=== PATIENT | male | born 1995 | race Caucasian/White ===

== ENCOUNTER 2018-03-05 07:50 | Emergency (ER) | payer OTHER, SELFPAY ==
[2018-03-05] MEDS ORDERED: Adacel (T-DAP) 0.5 ML VIAL ONE (08:00)
[2018-03-05 08:28] LABS: #Basophils 0.1 thou/uL (0.0-0.2); #Eosinphils 0.2 thou/uL (0.0-0.7); #Monocytes 0.6 thou/uL (0.11-0.59); %Basophils 0.7 % (0.0-1.0); %Eosinophils 2.7 % (0.0-10.0); %Lymphocytes 22.6 % (21.0-51.0); %Monocytes 6.9 % (0.0-10.0); %Neutrophils 67.2 % (42.0-75.0); Hemoglobin 14.7 g/dL (14.0-18.0); Mean Corpuscular HGB CONC 33.9 g/dL (32.0-36.0); Mean Corpuscular Hemoglobin 30.7 pg (27.0-31.0); Mean Corpuscular Volume 90.7 fL (78.0-98.0); Mean Platelet Volume 8.4 fL (7.4-10.4); Platelet Count 234 thou/uL (130-400); RBC Distribution Width 11.3 % (11.5-14.5); White Blood Cell (WBC) Count 8.9 thou/uL (4.8-10.8)
[2018-03-05 08:35] LABS: PTT 23.9 SEC (22.9-36.1); Prothrombin Time 13.2 SEC (12.0-14.7)
[2018-03-05 08:48] LABS: ALT (SGPT) 28 U/L (8-55); AST (SGOT) 39 U/L (5-34); Albumin 4.8 g/dL (3.5-5.0); Alcohol Less than 10 mg/dL (Less than 10); Alkaline Phosphatase 71 U/L (40-150); Anion Gap 13 mmol/L (10-20); BUN (Urea Nitrogen) 24 mg/dL (8.9-20.6); Bilirubin, Total 1.1 mg/dL (0.2-1.2); Calc. Creatinine Clearance 0 mL/min (70-130); Carbon Dioxide 27 mmol/L (22-29); Chloride 105 mmol/L (98-107); Estimated GFR-MDRD 90; Glucose 131 mg/dL (70-105); Lipase 54 U/L (8-78); Potassium 3.8 mmol/L (3.5-5.1); Protein, Total 7.8 g/dL (6.0-8.3); Sodium 141 mmol/L (136-145)
[2018-03-05] MEDS ORDERED: Morphine 4 MG/ML VIAL ONE (08:54)
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
[2018-03-05] MEDS ORDERED: Bacitracin Zinc 1 Packet ONE (11:34)
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
[2018-03-05] MEDS ORDERED: ISOVUE-370 76%-LOCM 1 ML ONE (15:10)
== END 2018-03-05 11:47 | disposition home or self-care (01) ==
LOC: ERS 07:50
DX: S06.0X9A Concussion with loss of consciousness of unspecified duration, initial encounter (principal); S00.83XA Contusion of other part of head, initial encounter; S63.501A Unspecified sprain of right wrist, initial encounter; F17.200 Nicotine dependence, unspecified, uncomplicated; Z23 Encounter for immunization; V29.3XXA Motorcycle rider (driver) (passenger) injured in unspecified nontraffic accident, initial encounter
CPT/HCPCS: 70450; 70486; 71260; 72125; 74177; 80053; 80307; 83690; 85025; 85610; 85730; 86850; 86900; 86901; 90471; 90715; 93005; 96361; 96374; J2270